=== PATIENT | female | born 1980 ===

== ENCOUNTER 2017-07-06 10:06 | Emergency (ER) | payer OTHER ==
[2017-07-06 10:10] VITALS: BP 120/80; PULSE 93; RESP 16; TEMP 98.3; O2SAT 99; BMI 38.3
--- NOTE | 2017-07-06 10:56 | ED PDOC ---
HPI: Eye Injury/Pain Time Seen by Provider: 07/06/17 10:21 Chief Complaint (Nursing): Eye Problem Chief Complaint (Provider): Eye Problem History Per: Patient History/Exam Limitations: no limitations Onset/Duration Of Symptoms: Days (x2) Current Symptoms Are (Timing): Still Present Additional Complaint(s): Nicole Malone is a 37 year old female presenting to the ED for an evaluation of bilateral eye itching occurring for 2 days prior to arrival. She also reports a bump on the side of her right eye that is increasing in size. The patient denies pain, trauma, photophobia, and does not wear contacts. PMD: None Provided Past Medical History Reviewed: Historical Data, Nursing Documentation, Vital Signs Vital Signs: Last Vital Signs Temp 98.3 F 07/06/17 10:09 Pulse 93 H 07/06/17 10:09 Resp 16 07/06/17 10:09 BP 120/80 07/06/17 10:09 Pulse Ox 99 07/06/17 10:09 - Medical History PMH: Rheumatoid Arthritis Denies: Asthma, Diabetes - Family History Family History: States: Unknown Family Hx - Home Medications Home Medications: Ambulatory Orders Medication Instructions Recorded Naproxen 500 mg PO BID #20 tab 09/03/15 Ciprofloxacin HCl [Cipro] 500 mg PO BID #20 tab 10/30/16 traMADol [Ultram] 50 mg PO Q8 #10 tab 10/30/16 Moxifloxacin HCl [Moxifloxacin] 2 drop OU DAILY #1 bottle 07/06/17 - Allergies Allergies/Adverse Reactions: Allergies Allergy/AdvReac Type Severity Reaction Status Date / Time No Known Allergies Allergy Verified 07/06/17 10:11 Review of Systems ROS Statement: Except As Marked, All Systems Reviewed And Found Negative Constitutional: Negative for: Other (no trauma ) Eyes: Positive for: Other (bilateral eye itching and a bump present on side of right eye ). Negative for: Pain, Vision Change (no photophobia ) Physical Exam - Reviewed Nursing Documentation Reviewed: Yes Vital Signs Reviewed: Yes - Physical Exam Appears: Positive for: Non-toxic, No Acute Distress Head Exam: Positive for: ATRAUMATIC, NORMOCEPHALIC Eye Exam: Positive for: Normal appearance (no abnormal fluorescein uptake ), EOMI, PERRL, Conjunctival injection (bilateral), Other (right lateral eye: epicanthal fold there is a 3 mm mass non painful, no fluctuance). Negative for : Nystagmus, Periorbital swelling, Periorbital tenderness, Scleral icterus Neurologic/Psych: Positive for: Alert, Oriented (x3). Negative for: Motor/ Sensory Deficits - ECG O2 Sat by Pulse Oximetry: 99 (RA) Pulse Ox Interpretation: Normal Medical Decision Making Medical Decision Making: Time: 10:21 Impression: Bilateral eye itching Plan: Rx antibiotic drops for conjunctivitis. Send pt to opt for follow up. Pt agreed to treatment plan. Scribe Attestation: Documented by Judith Gamboa, acting as a scribe for Ngoc Vasquez MD. Provider Scribe Attestation: All medical record entries made by the Scribe were at my direction and personally dictated by me. I have reviewed the chart and agree that the record accurately reflects my personal performance of the history, physical exam, medical decision making, and the department course for this patient. I have also personally directed, reviewed, and agree with the discharge instructions and disposition. Disposition - Clinical Impression Clinical Impression: Conjunctivitis - Disposition Referrals: Brent Tolbert MD [Staff Provider] - Disposition: Routine/Home Disposition Time: 10:56 Condition: STABLE Prescriptions: Moxifloxacin HCl [Moxifloxacin] 2 drop OU DAILY #1 bottle Instructions: Conjunctivitis (ED) Forms: [employer] (Polish)
== END 2017-07-06 11:47 | disposition home or self-care (01) ==
LOC: H.ER 10:06
DX: H10.9 Unspecified conjunctivitis (principal)

== ENCOUNTER 2017-11-11 10:34 | Emergency (ER) | payer OTHER, MEDICAID ==
[2017-11-11 10:37] VITALS: BP 148/84; PULSE 90; TEMP 97.1; O2SAT 98
[2017-11-11 10:38] VITALS: BMI 41.0
[2017-11-11] MEDS ORDERED: Amoxicillin-Clav 875-125 mg Tab PO STA (10:49)
[2017-11-11] MEDS ORDERED: Oxycodone/Acetaminophen 5/325 mg Tab PO STA (10:49)
--- NOTE | 2017-11-11 10:59 | ED PDOC ---
HPI: Headache Time Seen by Provider: 11/11/17 10:38 Chief Complaint (Nursing): Headache Chief Complaint (Provider): headache History Per: Patient Additional Complaint(s): PtYuan is a 37 yo female, PMH of RA, presents to ED with complains of of "right facial throbbing pain and swelling x 2 days, pain radiating to right ear and into the head". Denies tooth ache. Past Medical History Reviewed: Historical Data, Nursing Documentation, Vital Signs Vital Signs: Last Vital Signs Temp 97.1 F L 11/11/17 10:36 Pulse 90 11/11/17 10:36 Resp BP 148/84 11/11/17 10:36 Pulse Ox 98 11/11/17 10:36 - Medical History PMH: Rheumatoid Arthritis Denies: Asthma, Diabetes - Surgical History Surgical History: No Surg Hx - Family History Family History: States: Unknown Family Hx - Living Arrangements Living Arrangements: With Family - Social History Current smoker - smoking cessation education provided: No Alcohol: None Drugs: Denies - Home Medications Home Medications: Ambulatory Orders Medication Instructions Recorded Naproxen 500 mg PO BID #20 tab 09/03/15 Ciprofloxacin HCl [Cipro] 500 mg PO BID #20 tab 10/30/16 traMADol [Ultram] 50 mg PO Q8 #10 tab 10/30/16 Moxifloxacin HCl [Moxifloxacin] 2 drop OU DAILY #1 bottle 07/06/17 Amoxicillin/Clavulanate [Augmentin 1 tab PO BID #14 tab 11/11/17 875 MG-125 MG] Ibuprofen [Motrin] 600 mg PO Q6 #20 tab 11/11/17 oxyCODONE/Acetaminophen [Percocet 1 ea PO Q6 PRN #10 tab 11/11/17 5/325 mg Tab] - Allergies Allergies/Adverse Reactions: Allergies Allergy/AdvReac Type Severity Reaction Status Date / Time No Known Allergies Allergy Verified 07/06/17 10:11 Review of Systems ROS Statement: Except As Marked, All Systems Reviewed And Found Negative ENT: Positive for: Other (dental pain, facial swelling) Physical Exam - Reviewed Nursing Documentation Reviewed: Yes Vital Signs Reviewed: Yes - Physical Exam Appears: Positive for: Well, Non-toxic, No Acute Distress Head Exam: Positive for: ATRAUMATIC, NORMAL INSPECTION, NORMOCEPHALIC Skin: Positive for: Normal Color, Warm, DRY Eye Exam: Positive for: EOMI, Normal appearance, PERRL ENT: Positive for: Other ((+) tenderness and edema right maxillary sinus. (+) erythema to gumline, no edema, no dental carries noted. ) Neck: Positive for: Normal, Painless ROM Cardiovascular/Chest: Positive for: Regular Rate, Rhythm Respiratory: Positive for: CNT, Normal Breath Sounds Gastrointestinal/Abdominal: Positive for: Normal Exam, Bowel Sounds, Soft Back: Positive for: Normal Inspection Extremity: Positive for: Normal ROM Neurologic/Psych: Positive for: Alert, Oriented - ECG O2 Sat by Pulse Oximetry: 98 Medical Decision Making Medical Decision Making: Medicated with percocet and Motrin PO. Also started on augmentin. warm compresses advised Dental follow up scheduled for Sunday Disposition - Clinical Impression Clinical Impression: Dental abscess - Disposition Disposition: Routine/Home Disposition Time: 13:17 Condition: STABLE Prescriptions: Amoxicillin/Clavulanate [Augmentin 875 MG-125 MG] 1 tab PO BID #14 tab Ibuprofen [Motrin] 600 mg PO Q6 #20 tab oxyCODONE/Acetaminophen [Percocet 5/325 mg Tab] 1 ea PO Q6 PRN #10 tab PRN Reason: Pain, Severe (8-10) Instructions: Dental Abscess (ED) Forms: [employer] (Korean)
[2017-11-11] MEDS ORDERED: Oxycodone/Acetaminophen 5/325 mg Tab ONE (11:02)
[2017-11-11] MEDS ORDERED: Amoxicillin-Clav 875-125 mg Tab PO ONE (11:10)
[2017-11-11] MEDS ORDERED: Morphine 4 MG/ML VIAL ONE (12:13)
== END 2017-11-11 12:49 | disposition home or self-care (01) ==
LOC: H.ER 10:34
DX: K04.7 Periapical abscess without sinus (principal); M06.9 Rheumatoid arthritis, unspecified
CPT/HCPCS: 81025; 96372; 99283; J2270

== ENCOUNTER 2017-11-21 10:39 | Emergency (ER) | payer MEDICAID, OTHER ==
[2017-11-21 10:39] VITALS: BMI 41.0
[2017-11-21 11:26] VITALS: BP 119/74; PULSE 92; RESP 21; TEMP 98.6; O2SAT 98
[2017-11-21] MEDS ORDERED: Albuterol-Ipratrop 3 mg / 0.5 (3 ml) UD ONE (11:32)
[2017-11-21] MEDS ORDERED: Albuterol-Ipratrop 3 mg / 0.5 (3 ml) UD INH STA ×3 (12:05→12:08)
[2017-11-21] MEDS ORDERED: Sodium Chloride 0.9% 1,000 ML IV STA (12:07)
--- NOTE | 2017-11-21 12:40 | ED PDOC ---
HPI: CCC, URI, Sore Throat Time Seen by Provider: 11/21/17 11:40 Chief Complaint (Nursing): Flu-like Symptoms Chief Complaint (Provider): Cough History Per: Patient History/Exam Limitations: no limitations Onset/Duration Of Symptoms: Days (x 3) Current Symptoms Are (Timing): Still Present Additional Complaint(s): Nicole is a 37 y/o female who presents to the ED complaining of a cough for the past 3 days. Patient states the cough has not been getting better, and yesterday she developed a fever and body aches. She has been taking Tylenol Flu with no relief but has not seen a doctor. She denies a history of asthma and has not gotten a flu shot. PMD: None Past Medical History Reviewed: Historical Data, Nursing Documentation, Vital Signs Vital Signs: Last Vital Signs Temp 98.6 F 11/21/17 11:23 Pulse 92 H 11/21/17 11:23 Resp 21 11/21/17 11:23 BP 119/74 11/21/17 11:23 Pulse Ox 98 11/21/17 14:01 - Medical History PMH: Rheumatoid Arthritis Denies: Asthma, Diabetes - Family History Family History: States: Unknown Family Hx Other Family History: asthma - Social History Drugs: Cannabis - Immunization History Hx Tetanus Toxoid Vaccination: No Hx Influenza Vaccination: No - Home Medications Home Medications: Ambulatory Orders Medication Instructions Recorded Naproxen 500 mg PO BID #20 tab 09/03/15 Ciprofloxacin HCl [Cipro] 500 mg PO BID #20 tab 10/30/16 traMADol [Ultram] 50 mg PO Q8 #10 tab 10/30/16 Moxifloxacin HCl [Moxifloxacin] 2 drop OU DAILY #1 bottle 07/06/17 Amoxicillin/Clavulanate [Augmentin 1 tab PO BID #14 tab 11/11/17 875 MG-125 MG] Ibuprofen [Motrin] 600 mg PO Q6 #20 tab 11/11/17 oxyCODONE/Acetaminophen [Percocet 1 ea PO Q6 PRN #10 tab 11/11/17 5/325 mg Tab] Albuterol Sulfate [Proair Hfa] 2 puff IH Q4H PRN #1 inh 11/21/17 predniSONE [predniSONE Tab] 40 mg PO DAILY #10 tab 11/21/17 - Allergies Allergies/Adverse Reactions: Allergies Allergy/AdvReac Type Severity Reaction Status Date / Time No Known Allergies Allergy Verified 11/21/17 11:22 Review of Systems ROS Statement: Except As Marked, All Systems Reviewed And Found Negative Constitutional: Positive for: Fever, Malaise. Negative for: Chills Respiratory: Positive for: Cough, Shortness of Breath Physical Exam - Reviewed Nursing Documentation Reviewed: Yes Vital Signs Reviewed: Yes - Physical Exam Appears: Positive for: Uncomfortable (mild distress) Skin: Positive for: Normal Color, Warm. Negative for: Rash Respiratory: Positive for: Rales, Wheezing (b/l), Other (coughing, prolonged expiratory phase) Extremity: Negative for: Swelling - Laboratory Results Result Diagrams: 11/21/17 12:30 11/21/17 12:30 - ECG O2 Sat by Pulse Oximetry: 98 (RA) Pulse Ox Interpretation: Normal - Radiology X-Ray: Read By Radiologist X-Ray Interpretation: No Acute Disease (incidental finding of pulmonary nodule) - Progress Re-evaluation Time: 14:00 Condition: Re-examined (air entry improved. Patient no longer having coughing fits.), Improved Medical Decision Making Medical Decision Making: Time: 12:07 Initial Impression: Viral illness with bronchospasm Initial Plan: --CMP --Urine Dip --CBC --Chest XR --Albuterol --Solu-Medrol --Flu swab Time: 13:19 CHEST XR FINDINGS: LUNGS: No consolidation. The central hilar/perihilar bronchovascular markings are coarsely prominent. A viral pneumonitis or bronchitis is possible. No more peripheral dense consolidation noted. There is a 9 mm rounded hyperdensity - left upper lobe which also projects over the anterior left 1st rib in the posterior left 4th rib. Summation of these osseous structures could conceivably contribute to this hyperdense appearance. Nevertheless underlying left upper lobe pulmonary pathology is not excluded. No comparisons to evaluate stability available. PLEURA: No significant pleural effusion identified. No pneumothorax apparent. CARDIOVASCULAR: Normal. OSSEOUS STRUCTURES: No significant abnormalities. VISUALIZED UPPER ABDOMEN: Normal. OTHER FINDINGS: None. IMPRESSION: No consolidation. Coarse perihilar bronchovascular markings -a viral pneumonitis is and/or bronchitis are some considerations . No dense consolidation. Indeterminate 9 mm rounded hyperdensity projecting over the left upper lobe - an apical lordotic and bilateral oblique views may clarified this. Ultimately a noncontrast CT chest may be needed Scribe Attestation: Documented by Armando Traylor, acting as a scribe for Carissa García MD Provider Scribe Attestation: All medical record entries made by the Scribe were at my direction and personally dictated by me. I have reviewed the chart and agree that the record accurately reflects my personal performance of the history, physical exam, medical decision making, and the department course for this patient. I have also personally directed, reviewed, and agree with the discharge instructions and disposition. Disposition - Clinical Impression Clinical Impression: Reactive airway disease, Lung nodule, Vaginal bleeding - Patient ED Disposition Is Patient to be Admitted: No Doctor Will See Patient In The: Office Counseled Patient/Family Regarding: Diagnosis, Need For Followup, Rx Given - Disposition Disposition: Routine/Home Disposition Time: 14:00 Condition: IMPROVED Prescriptions: Albuterol Sulfate [Proair Hfa] 2 puff IH Q4H PRN #1 inh PRN Reason: Cough predniSONE [predniSONE Tab] 40 mg PO DAILY #10 tab Instructions: Reactive Airways Disease (ED) Forms: [employer] (Panamanian), [facility] ED School/Work Excuse - POA Present On Arrival: None
[2017-11-21 12:42] LABS: BASO % 0.6 % (0.0-2.0); EOS # 0.2 K/uL (0.0-0.7); EOS % 2.5 % (0.0-4.0); HEMOGLOBIN 14.3 g/dL (12.0-16.0); LYMPH # 1.4 K/uL (1.0-4.3); MEAN CELL VOLUME 91.4 fl (81.0-99.0); MEAN CORPUSCULAR HEMOGLOBIN 30.8 pg (27.0-31.0); MEAN CORPUSCULAR HGB CONC 33.7 g/dL (33.0-37.0); MEAN PLATELET VOLUME 8.7 fl (7.2-11.7); MONO # 0.5 K/uL (0.0-0.8); MONO % 6.2 % (0.0-10.0); NEUT # 5.8 K/uL (1.8-7.0); NEUT % 72.7 % (50.0-75.0); NRBC % 0.2 % (0.0-0.0); RBC 4.64 Mil/uL (3.80-5.20); RED CELL DISTRIBUTION WIDTH 12.9 % (11.5-14.5)
[2017-11-21 13:02] LABS: ALB/GLOB RATIO 1.1 (1.0-2.1); ALBUMIN 3.9 g/dL (3.5-5.0); ALT/SGPT 28 U/L (9-52); AST/SGOT 28 U/L (14-36); BLOOD UREA NITROGEN 11 mg/dl (7-17); CALCIUM 8.8 mg/dL (8.4-10.2); GFR AFRICAN-AMERICAN > 60; GFR NON-AFRICAN AMERICAN > 60
--- NOTE | 2017-11-21 13:21 | RAD ---
HISTORY: cough and fever COMPARISON: No prior. TECHNIQUE: Chest PA and lateral FINDINGS: LUNGS: No consolidation. The central hilar/perihilar bronchovascular markings are coarsely prominent. A viral pneumonitis or bronchitis is possible. No more peripheral dense consolidation noted. There is a 9 mm rounded hyperdensity - left upper lobe which also projects over the anterior left 1st rib in the posterior left 4th rib. Summation of these osseous structures could conceivably contribute to this hyperdense appearance. Nevertheless underlying left upper lobe pulmonary pathology is not excluded. No comparisons to evaluate stability available. PLEURA: No significant pleural effusion identified. No pneumothorax apparent. CARDIOVASCULAR: Normal. OSSEOUS STRUCTURES: No significant abnormalities. VISUALIZED UPPER ABDOMEN: Normal. OTHER FINDINGS: None. IMPRESSION: No consolidation. Coarse perihilar bronchovascular markings -a viral pneumonitis is and/or bronchitis are some considerations . No dense consolidation. Indeterminate 9 mm rounded hyperdensity projecting over the left upper lobe - an apical lordotic and bilateral oblique views may clarified this. Ultimately a noncontrast CT chest may be needed
== END 2017-11-21 16:24 | disposition home or self-care (01) ==
LOC: H.ER 10:39
DX: J45.909 Unspecified asthma, uncomplicated (principal); J40 Bronchitis, not specified as acute or chronic; N93.9 Abnormal uterine and vaginal bleeding, unspecified; M06.9 Rheumatoid arthritis, unspecified
CPT/HCPCS: 71046; 80053; 81025; 85025; 87804; 94640; 96374; 99284; J2930; J7040